=== PATIENT | male | born 1975 | race Caucasian/White ===

== ENCOUNTER → 2016-08-13 | Outpatient (CLI) | payer BC | LOC: LAB 11:54 ==

== ENCOUNTER → 2016-08-17 | Outpatient (CLI) | payer BC | LOC: LAB 17:00 | DX: R73.01 Impaired fasting glucose (principal); R53.81 Other malaise ==

== ENCOUNTER → 2017-04-14 | Outpatient (CLI) | payer BC ==
[2017-02-07 23:06] VITALS: BP 123/82
== END ==
LOC: RAD 10:36
DX: M25.512 Pain in left shoulder (principal)

== ENCOUNTER → 2017-04-24 | Outpatient (CLI) | payer BC ==
[2017-02-07 23:06] VITALS: BP 123/82
[2017-04-24 14:04] LABS: ALBUMIN 4.8 g/dL (3.5-5.0); BUN/CREATININE RATIO 9.1 (6.0-26.0); CALCIUM 9.5 mg/dL (8.4-10.2); POTASSIUM 3.4 mmol/L (3.6-5.0); TOTAL BILIRUBIN 1.5 mg/dL (0.2-1.3); TOTAL PROTEIN 8.2 g/dL (6.3-8.2)
== END ==
LOC: LAB 13:42
PROVIDERS: Nurse Practitioner Family
DX: R17 Unspecified jaundice (principal); R19.6 Halitosis; Z83.3 Family history of diabetes mellitus